=== PATIENT | female | born 1990 | race Hispanic/Latino ===

== ENCOUNTER 2017-02-11 19:01 | Emergency (ER) | payer BC, OTHER ==
[2017-02-11 19:24] VITALS: BP 130/85; PULSE 57; RESP 16; TEMP 98.2; O2SAT 99
[2017-02-11] MEDS ORDERED: TDAP Vaccine 0.5 mL Syr IM ONE (20:28)
--- NOTE | 2017-02-11 20:30 | ED PDOC ---
HPI: Wound Care - HPI Time Seen by Provider: 02/11/17 19:59 Chief Complaint (Nursing): Finger,Hand,&Wrist Chief Complaint (Provider): thumb laceration History Per: Patient History Of Present Illness: 26 y/o right hand dominant female presents with laceration to left thumb sustained 18:30 tonight. Patient states she was trying to cut a sweet potato with a knife and accidentally sliced her thumb. Denies numbness/weakness left upper extremity, limitation of movement. Last tetanus unknown. Past Medical History Reviewed: Historical Data, Nursing Documentation, Vital Signs Vital Signs: Last Vital Signs Temp 98.2 F 02/11/17 19:19 Pulse 57 L 02/11/17 19:19 Resp 16 02/11/17 19:19 BP 130/85 02/11/17 19:19 Pulse Ox 99 02/11/17 19:19 - Medical History PMH: HTN (on amlodipine since yesterday) Denies: Chronic Kidney Disease - Surgical History Surgical History: No Surg Hx - Family History Family History: States: Hypertension - Home Medications Home Medications: Ambulatory Orders Medication Instructions Recorded amLODIPine [Norvasc] 2.5 mg PO DAILY 09/08/14 - Allergies Allergies/Adverse Reactions: Allergies Allergy/AdvReac Type Severity Reaction Status Date / Time No Known Allergies Allergy Verified 09/07/14 15:17 Review of Systems ROS Statement: Except As Marked, All Systems Reviewed And Found Negative Musculoskeletal: Positive for: Hand Pain (left thumb laceration) Physical Exam - Reviewed Vital Signs Reviewed: Yes - Physical Exam Appears: Positive for: Well, Non-toxic, No Acute Distress Head Exam: Positive for: ATRAUMATIC, NORMAL INSPECTION, NORMOCEPHALIC Pulses-Radial (L): 2+ Pulses-Radial (R): 2+ Extremity: Positive for: Normal ROM, Other (2cm superficial laceration noted distal left thumb; minimal active bleeding. Distal NV, motor intact. Nail intact) Neurologic/Psych: Positive for: Alert, Oriented. Negative for: Motor/Sensory Deficits - ECG O2 Sat by Pulse Oximetry: 99 Procedure: Wound Repair - Time Performed Time Performed: 20:45 - Time Out Time Out: Side verified, Sterile procedures obs. - Consent Obtained Consent obtained: Verbal - Performed by Performed by: Mid-level Provider - Indications Indication(s):: Laceration - Location Finger:: Left, Thumb Shape:: Linear Dimensions Length cm: 2 Dimensions width cm: 0.3 Depth:: Epidermis - Debris Debris:: None - Irrigated Irrigated with ml of normal saline: 200mL - Wound repair method Pasquale:: Tissue glue - Muscle repiar layer closed with Muscle repair layer closed with:: Dressing applied, Tetanus ordered - Patient tolerated procedure Patient Tolerated Procedure:: Well Medical Decision Making Medical Decision Making: Patient educated on wound care, discharged with instructions to follow up PMD 2- 3 days. Advised to return to ED for fever, increased pain/redness/swelling from site, or other concerning symptoms. Disposition - Clinical Impression Clinical Impression: Thumb laceration - Patient ED Disposition Is Patient to be Admitted: No Counseled Patient/Family Regarding: Diagnosis, Need For Followup - Disposition Disposition: Routine/Home Disposition Time: 21:13 Condition: STABLE Instructions: Laceration (ED), Skin Adhesive Care (ED), Steristrips (ED)
== END 2017-02-11 21:59 | disposition home or self-care (01) ==
LOC: H.ER 19:01
DX: S61.012A Laceration without foreign body of left thumb without damage to nail, initial encounter (principal); W26.0XXA Contact with knife, initial encounter; Y92.000 Kitchen of unspecified non-institutional (private) residence as the place of occurrence of the external cause; I10 Essential (primary) hypertension